=== PATIENT | male | born 1960 ===

== ENCOUNTER 2017-02-21 08:32 | Emergency (ER) | payer OTHER ==
[~2017-02-21] VITALS: Ht 182.9 cm; Wt 90.0 kg
[2017-02-21] VITALS (13 sets, daily range): BP systolic 65–162; BP diastolic 36–76; PULSE 81–104; RESP 24–28; O2SAT 93–100
--- NOTE | 2017-02-21 08:35 | ED.REPORT ---
HPI-Altered Mental Status Date of Service Feb 21, 2017 ED Provider: Ivory Briggs MD The pt is a 49 y/o male presenting to the ED via EMS due to a suicide attempt. He was found by a neighbor w/ an exhaust pipe going into his bedroom. The neighbor reports the pt is going through a divorce, and thinks there was a possible suicide attempt in the past. EMS found the pt w/ thick, white, dried froth around his mouth. They report the pt having good lung sounds, w/ an initial SaO2 of 86% and CO of 40, and have been giving him 15 L of O2 since they reached him. They also report that his CO level has been dropping and his SaO2 levels being in the high 90s. Versed and rocuronium was given in the field as well. Nursing Notes Stated Complaint: SUICIDE Chief Complaint: Suicide attempt Nursing Notes Reviewed: Yes General Time Seen by MD: 08:35 Chief Complaint Other (Suicide attempt) Hx Obtained From: EMS Arrived By: Ambulance Sudden in Onset?: Yes Onset Occurred: Just prior to arrival Symptom Duration: Since onset Recent Healthcare: No recent doctor visit, No recent hospitalization Similar Sx Previous: Yes Past Medical History Past Medical History Suicide attempt in past Diabetes Past Surgical History None reported Review of Systems Unable to Obtain ROS Patient condition, Intubated Physical Exam Initial Vital Signs Vital Signs (First) Date Time Temp Pulse Resp B/P Pulse Ox O2 Delivery O2 Flow Rate FiO2 02/21/17 08:42 36.0 101 24 99/60 95 Mechanical Ventilator Initial VS: Reviewed, Vital signs abnormal ENT: Mucous membranes moist, Conjunctiva normal, No scleral icterus Abdomen / GI: Soft, Non-tender Extremities: Vascular intact, Neuro intact, No swelling, No tenderness Skin: Warm, Dry, No cyanosis General/Constitutional: Well nourished Alertness: Positive: Unresponsive GCS of 3 Intubated Head / Eyes: Normocephalic, PERRL Neck: Supple, No swelling Cardiovascular: Heart rate NL, Regular rhythm, Heart sounds NL Mental Status: Positive: Unresponsive Interpretation & Diagnostics Lab Results Interpretation Result Diagram: 02/21/17 0845 02/21/17 0845 Test 02/21/17 08:45 02/21/17 09:15 White Blood Count 17.4th/mm3 (3.8-10.1) Red Blood Count 5.28mil/mm3 (4.40-5.80) Hemoglobin 17.0g/dL (13.8-17.2) Hematocrit 49.3% (41.0-50.0) Mean Corpuscular Volume 93.4fL (81-100) Mean Corpuscular Hemoglobin 32.2pg (27.0-35.0) Mean Corpuscular Hemoglobin Concent 34.5% (32.0-37.0) Red Cell Distribution Width 12.5% (12.3-15.4) Platelet Count 185bil/L (150-400) Neutrophils (%) (Auto) 80.9% (40-74) Lymphocytes (%) (Auto) 8.3% (14-46) Monocytes (%) (Auto) 9.3% (4-12) Eosinophils (%) (Auto) 0% (0-5) Basophils (%) (Auto) 0.2% (0-3) Prothrombin Time 10.1sec (8.1-12.5) Prothromb Time International Ratio 0.95ratio Sodium Level 139mEq/L (134-144) Potassium Level 5.3mEq/L (3.5-5.2) Chloride Level 98mEq/L (97-108) Carbon Dioxide Level 13mmol/L (18-29) Blood Urea Nitrogen 26mg/dL (6-24) Creatinine 1.75mg/dL (0.76-1.27) Estimat Glomerular Filtration Rate 43mL/min (>59) Glucose Level 343mg/dL (60-99) Lactic Acid Level 10.7mmol/L (0.4-2.0) Calcium Level 8.7mg/dL (8.5-10.1) Magnesium Level 2.0mg/dL (1.6-2.6) Total Bilirubin 0.4mg/dL (0.0-1.2) Aspartate Amino Transf (AST/SGOT) 51U/L (0-50) Alanine Aminotransferase (ALT/SGPT) 41U/L (0-44) Alkaline Phosphatase 97U/L (25-150) Troponin T 0.050ug/L (0.0-0.011) Total Protein 7.1g/dL (6.4-8.4) Albumin 4.4g/dL (3.4-5.0) Salicylates Level 3.0ug/mL (30-250) Acetaminophen Level 15.0ug/mL Rx (10-25) Alcohols < 10mg/dL (0-10) Urine Color Straw (YELLOW) Urine Appearance Clear (CLEAR,HAZY) Urine pH 5.5 (5.0-8.0) Urine Specific Hull 1.025 (1.003-1.035) Urine Protein Negativemg/dL (NEG,TRACE) Urine Glucose (UA) >1000mg/dL (NEGATIVE) Urine Ketones 15mg/dL (NEGATIVE) Urine Occult Blood Trace (NEGATIVE) Urine Nitrite Negative (NEGATIVE) Urine Bilirubin Negative (NEGATIVE) Urine Urobilinogen Normalmg/dL (NORMAL) Urine Leukocyte Esterase Negative (NEGATIVE) Urine RBC 0-2/hpf (0-2) Urine WBC 0-5/hpf (0-5) Urine Epithelial Cells None/hpf (NONE-MOD) Urine Crystals None seen (NONE SEEN) Urine Bacteria None/hpf (NONE-FEW) Urine Hyaline Casts Occasional/lpf (NONE) Urine Granular Casts None seen (NONE SEEN) Urine Waxy Casts None seen (NONE SEEN) Urine Red Blood Cell Casts None seen (NONE SEEN) Urine White Blood Cell Casts None seen (NONE SEEN) Urine Mucus None seen (None Seen) Urine Trichomonas None seen (NONE SEEN) Urine Yeast None (NONE SEEN) Urinalysis Comment None Urine Culture Reflexed Not indicated ECG Interpretation ECG Interpretation: Rate 93 Increase QTC NSR Early R-wave transition Time: 08:52 Interpreted by: ED physician X-Ray Chest Interpretation Chest Xray Interpretation: IMPRESSION: No mass found, reduced inspiration, endotracheal tube position normal. Bibasilar mild atelectasis and/or pneumonia. Dictated by: Fabrice Bedolla M.D. on 02/21/2017 at 9:57 Approved by: Fabrice Bedolla M.D. on 02/21/2017 at 9:58 View: Portable, 1 view Interpretation / Wet Read by: Interpret - Radiologist Chest Xray Interpretation: IMPRESSION: Lines and tubes appear in normal position, reduced inspiratory volume as was previously the case, possible mild or early pneumonia versus aspiration medial left lower lobe. Dictated by: Fabrice Bedolla M.D. on 02/21/2017 at 10:26 Approved by: Fabrice Bedolla M.D. on 02/21/2017 at 10:33 View: Portable, 1 view Interpretation / Wet Read by: Interpret - Radiologist CT Head Interpretation IMPRESSION: Normal for age, source of altered mental status is not seen. Dictated by: Fabrice Bedolla M.D. on 02/21/2017 at 11:12 Approved by: Fabrice Bedolla M.D. on 02/21/2017 at 11:12 Study: Head CT no contrast Interpretation / Wet Read by: Interpret - Radiologist Procedures Central Line Placement Central Line Placement Note: Showing end-organ damage Time: 09:35 Procedure Performed by: ED physician Consent / Setup / Site Prep: No consent - emergent, Oxygen administered, Pulse oximeter applied, monitoring coordinator applied, Hand hygiene observed, Standard surgical scrub, Sterile drapes applied, Position Trendelenburg Skin Preparation Agent: Hibiclens - Chlorhexidine Side / Location / Ultrasound: Internal jugular right, Ultrasound assisted Post-Procedure / Complications: Condition improved, Tolerated procedure well , Patient stable Re-Eval/Medical Decision Med Decision/Clinical Course This patient presented with an obvious suicide attempt by carbon monoxide poisoning. He was unresponsive upon arrival clenching his jaw and was intubated. Upon arrival here his evaluation revealed an acidosis and, monoxide level of 30. While here the patient became hypotensive and required dopamine which was eventually stopped due to her blood pressure however prior to transport the patient became hypotensive again and dopamine was restarted. The patient does not have any other signs of a co ingestion. The patient's family arrived upon his transport and stated that he does have multiple medications he supposed to be on and that he is diabetic. They are going to go down to [facility] later this afternoon. The patient did spontaneously open his eyes have minimal movement that was not able to follow commands. Re-Evaluation/Progress #1: Time of Eval: 09:35 Re-Evaluation/Progress Note: Performed central line procedure. Re-Evaluation/Progress #2: Time of Eval: 10:13 Re-Evaluation/Progress Note: Pt rechecked and is beginning to wake up w/ spontaneous eye opening and swallowing. Re-Evaluation/Progress #3: Time of Eval: 11:13 Re-Evaluation/Progress Note: Spoke w/ patient's family and discussed the plan for the pt. They report the pt being a diabetic. Consultation #1: [facility] Returned at: 09:54 Consultation #2: Referral / Consult Name: Stephanie Newell MD Call Returned at: 10:10 Title I Teacher: Will see patient Note: Discussed pt's case w/ Dr. 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 I, Dr. Briggs personally performed the history, physical exam and medical decision-making; I reviewed and confirmed the accuracy of the information in the transcribed note. copies to: [facility] Ivory Briggs MD Feb 21, 2017 08:35 Curry Martin Feb 21, 2017 09:32
--- NOTE | 2017-02-21 08:55 | ABG ---
DateTimeAnalyzed 08:46:41 -_ pH ____7.165 - pCO2 ___42.0__ -mmHg pO2 226 -mmHg HCO3- ___15.1__ -mmol/L ABE __-12.8__ -mmol/L tHb ___15.5__ -g/dL O2Hb ___69.2__ -% COHb ___30.7__ -% MetHb ____0.4__ -% FIO2 __100.0__ -% Set_RR 24 -b/min Drawn By as - Date/Time Notified____ 08:55:00 -_ Spontaneous_RR 24 -b/min A/C __500.0__ - Oxygen Device 1 VENTILATOR - Notified By ams - Notified Whom _dr chilo - K+ ____4.7__ -mmol/L Kushal test _Positive -
[2017-02-21 09:09] LABS: INR 0.95 ratio
[2017-02-21 09:26] LABS: Mean Corpuscular Volume 93.4 fL (81-100)
[2017-02-21 09:27] LABS: BASOPHILS % (AUTO) 0.2 % (0-3); EOSINOPHILS % (AUTO) 0 % (0-5); MONOCYTES % (AUTO) 9.3 % (4-12); Mean Corpuscular Hemoglobin 32.2 pg (27.0-35.0); NEUTROPHILS % (AUTO) 80.9 % (40-74); Platelet Count 185 bil/L (150-400)
[2017-02-21] MEDS ORDERED: 0.9% Sodium Chloride 1,000 ML IV ONE (09:30)
[2017-02-21] MEDS ORDERED: DOPamine 800 mg/250 mL D5W 800,000 MCG in IV Premix 1 EACH IV STA (09:33)
--- NOTE | 2017-02-21 09:48 | ABG ---
DateTimeAnalyzed 09:42:00 -_ pH ____7.227 - 7.350 7.450 pCO2 ___35.5__ -mmHg 35.0 45.0 pO2 360 -mmHg 69.0 116 HCO3- ___14.2__ -mmol/L 22.0 26.0 ABE __-12.3__ -mmol/L -2.0 2.0 tHb ___14.4__ -g/dL O2Hb ___81.2__ -% COHb ___16.8__ -% MetHb ____1.3__ -% sO2 ___99.1__ -% 25.0 FIO2 __100.0__ -% PEEP ____5.0__ -cmH2O Set_RR ___24.0__ -b/min Vt __500.0__ -L Drawn By as - Date/Time Notified____ 09:48:00 -_ Spontaneous_RR ___28.0__ -b/min Oxygen Device 1 VENTILATOR - Notified By ams - Notified Whom _dr Chester - B 756 -mmHg tO2 ___17.3__ -Vol% Kushal test _Positive -
--- NOTE | 2017-02-21 10:00 | DRSVH ---
PROCEDURE: X-RAY CHEST ONE VIEW, PORTABLE ([id number]) INDICATIONS: intubation TECHNIQUE: One view of the chest was acquired. COMPARISON: None. FINDINGS: Surgical changes and devices: Endotracheal tube in normal position. Lungs and pleura: No pleural effusions or pneumothorax. Lungs are abnormal, with mild bibasilar ate lectasis and/or pneumonia in the setting of relatively prominently reduced inspiratory volume. Mediastinum: Mediastinal contours appear normal. Heart size is normal. Bones and chest wall: No suspicious bony lesions. Overlying soft tissues appear unremarkable. IMPRESSION: No mass found, reduced inspiration, endotracheal tube position normal. Bibasilar mild at electasis and/or pneumonia. Dictated by: Fabrice Bedolla M.D. on 02/21/2017 at 9:57 Approved by: Fabrice Bedolla M.D. on 02/21/2017 at 9:58
[2017-02-21] MEDS ORDERED: fentaNYL-PF 50 mCg/mL 2 mL Inj ONE (10:13)
[2017-02-21] MEDS ORDERED: fentaNYL-PF 50 mCg/mL 2 mL Inj IVPUSH ONE (10:15)
--- NOTE | 2017-02-21 10:35 | DRSVH ---
PROCEDURE: X-RAY CHEST ONE VIEW, PORTABLE ([id number]) INDICATIONS: POST CENTERAL LINE PLACEMENT TECHNIQUE: One view of the chest was acquired. COMPARISON: [facility], CR, XR CHEST 1VW (PORTABLE), 02/21/2017, 8:31. FINDINGS: Surgical changes and devices: Central line placed from right internal jugular approach, and with the tip extending into the expected region of the [id number] thirds of the superior vena cava. End otracheal tube now in normal position with tip 4.4 cm above the mohit. Nasogastric tube extends nor aj below the imaging margin Lungs and pleura: No pleural effusions or pneumothorax. Lungs are mildly atelectatic with reduced i nspiratory volume. Possible slight pneumonia or aspiration medial left lung base. Mediastinum: Mediastinal contours appear normal. Heart size is normal. Bones and chest wall: No suspicious bony lesions. Overlying soft tissues appear unremarkable. IMPRESSION: Lines and tubes appear in normal position, reduced inspiratory volume as was previously t he case, possible mild or early pneumonia versus aspiration medial left lower lobe. Dictated by: Fabrice Bedolla M.D. on 02/21/2017 at 10:26 Approved by: Fabrice Bedolla M.D. on 02/21/2017 at 10:33
[2017-02-21 10:52] LABS: APPEARANCE,URINE CLEAR (CLEAR,HAZY); COLOR,URINE STRAW (YELLOW); PH,URINE 5.5 (5.0-8.0)
[2017-02-21 10:53] LABS: OCCULT BLOOD,URINE TRACE (NEGATIVE); UROBILINOGEN,URINE NORMAL (NORMAL)
--- NOTE | 2017-02-21 11:15 | DRSVH ---
PROCEDURE: CT BRAIN WITHOUT CONTRAST ([id number]) INDICATIONS: ams TECHNIQUE: Noncontrast 4.5 mm thick angled axial sections acquired from the foramen magnum to the vertex, with c oronal reformats. COMPARISON: None. FINDINGS: Image quality: Excellent. CSF spaces: Basal cisterns are patent. No extra-axial fluid collections. Ventricles are normal in size and shape. Brain: No midline shift. No intracranial masses or hemorrhage. Ruelas-white matter interface is norm al. Skull and face: Calvarium and visualized facial bones are intact, without suspicious lesions. Sinuses: Visualized sinuses and mastoids are clear. IMPRESSION: Normal for age, source of altered mental status is not seen. Dictated by: Fabrice Bedolla M.D. on 02/21/2017 at 11:12 Approved by: Fabrice Bedolla M.D. on 02/21/2017 at 11:12
--- NOTE | 2017-02-23 01:27 | ABG ---
DateTimeAnalyzed 08:46:41 -_ pH ____7.165 - pCO2 ___42.0__ -mmHg pO2 226 -mmHg HCO3- ___15.1__ -mmol/L ABE __-12.8__ -mmol/L tHb ___15.5__ -g/dL O2Hb ___69.2__ -% COHb ___30.7__ -% MetHb ____0.4__ -% FIO2 __100.0__ -% Drawn By as - Date/Time Notified____ 08:55:00 -_ Notified By ams - Notified Whom _dr chilo - K+ ____4.7__ -mmol/L Kushal test _Positive -
--- NOTE | 2017-02-23 01:29 | ABG ---
DateTimeAnalyzed 08:46:41 -_ pH ____7.165 - 7.350 7.450 pCO2 ___42.0__ -mmHg 35.0 45.0 pO2 226 -mmHg 70.0 100 HCO3- ___15.1__ -mmol/L 22.0 26.0 ABE __-12.8__ -mmol/L -2.0 2.0 tHb ___15.5__ -g/dL 12.0 18.0 O2Hb ___69.2__ -% 95.0 COHb ___30.7__ -% 1.5 MetHb ____0.4__ -% 0.4 1.5 FIO2 __100.0__ -% Drawn By as - Date/Time Notified____ 08:55:00 -_ Notified By ams - Notified Whom _dr chilo - K+ ____4.7__ -mmol/L Kushal test _Positive -
== END 2017-02-21 10:55 | disposition short-term general hospital (02) ==
LOC: EDBD 08:32 → SED 08:32
DX: T58.02XA Toxic effect of carbon monoxide from motor vehicle exhaust, intentional self-harm, initial encounter (principal); X83.8XXA Intentional self-harm by other specified means, initial encounter; Y93.89 Activity, other specified; Y99.8 Other external cause status; Y92.838 Other recreation area as the place of occurrence of the external cause; E11.9 Type 2 diabetes mellitus without complications
CPT/HCPCS: 36415; 36556; 36620; 43752; 51702; 70450; 71010; 80053; 81000; 82373; 82375; 82803; 82948; 83605; 83735; 84484; 85025; 85610; 93005; 94002; 94799; 96361; 96365; 96375; 99291; 99292; G0480; J1265; J3010; J7030

== ENCOUNTER 2017-02-25 10:57 | Inpatient (IN) | payer MEDICAID, OTHER ==
[~2017-02-25] VITALS: Ht 185.4 cm; Wt 108.0 kg
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
[2017-02-25] MEDS ORDERED: Alum-Mag Hydrox-Simeth 30 mL Suspension PO PRN ×2 (14:35)
[2017-02-25] MEDS ORDERED: Benzocaine-Menthol Lozenge 2/Pkg PO PRN ×2 (14:35)
[2017-02-25] MEDS ORDERED: Magnesium Hydroxide 10 mL Oral Concentration PO PRN ×2 (14:35)
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
--- NOTE | 2017-02-25 18:38 | NUR ---
Seat Trimmer/Counselor: S: "My environmental lawyer says I may have a case and can finally get disability." O: Patient denies S/I and H/I. He also denies auditory and visual hallucinations. Depression is 1-2/10 and anxiety is 2/10. Patient stated that he has plans of moving to [place], [place] at the end of this month instead of living in [place], [place]. He also stated that "after this incident, all of my friends and family rallied around me and showed me how much they love me." A: Patient is cooperative, depressed, anxious, fair insight, fair judgment. P: Follow the care plan, coordinate with out-patient providers.
[2017-02-25] MEDS: Pantoprazole 20 mg ER24 Tablet PO SCH (22:12)
[2017-02-25] MEDS: BusPIRone 15 mg Dividose Tablet PO SCH (22:12)
[2017-02-25] MEDS: Insulin GLARgine 100 Unit/mL Syringe SUBQ SCH (22:13)
[2017-02-25 22:22] VITALS: BP 125/85; PULSE 81; RESP 16
--- NOTE | 2017-02-25 23:00 | NUR ---
Nurses Note evening Patient has been social with peers and enjoyed visiting with his and 2 daughters this shift. Patients' affect has been bright,his mood cheerful denying feelings of self harm. Patients' family to leave his truck in the [employer] parking lot for discharge convenience. Will maintain q 15min,checks for safety and support. Addendum: 02/25/17 at 7206 by MANDY ART RN Amended: Links added.
[2017-02-26] MEDS: hydrOXYzine Pamoate 25 mg Capsule PO PRN ×2 (04:07→21:09)
--- NOTE | 2017-02-26 04:35 | NUR ---
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 i'm just using my sheets and i'm still sweating. my head feels full can i have some benadryl. ok i'll try that. thank you. o- has appeared to sleep after midnight. awake briefly at 0300 for blood sugar check bs= 122. up at 0400 with complaint of how warm and stuffy his room is and that his head felt congested. received 50 mg of vistaril. is currently resting quietly in bed. assessed q 15 minutes. a- interupted sleep, no apparent distress. p- monitor behavior/emotional state, quality, times and amount of sleep, use and effect of medication. peg
[2017-02-26] MEDS: Pantoprazole 20 mg ER24 Tablet PO SCH ×2 (08:27→21:09)
[2017-02-26] MEDS: metFORMIN ER 500 mg ER24 Tablet PO SCH (08:28)
[2017-02-26] MEDS: BusPIRone 15 mg Dividose Tablet PO SCH ×2 (08:28→21:09)
[2017-02-26 11:30] VITALS: BP 108/75; PULSE 81; RESP 15
--- NOTE | 2017-02-26 12:54 | NUR ---
Nursing Dayshift Pt has had a pleasant day. He was up and out for breakfast and lunch. He was out in the main area visiting with a female peer. He presents with a bright affect smiling and laughing, watching a television show with his peers. He is sitting in a chair with his legs stretched out on an ottoman looking quite relaxed. He is in no apparent distress with no noted or expressed SI. He happily agreed to a visit with the hospital draw frame operator at 3pm. His only complaint is SANDOVAL pain that he describes as being "low grade". He did c/o diarrhea after eating lunch. Doctor notified and Imodium will be ordered per pt request. Pt's had called this afternoon after having a phone conversation with Shay. She called to speak with staff. She was very distraught on the phone and upset because Shay told her he would be discharging this Thursday. She expressed her concern about her 's safety. This staff nurse tried to provide the option for her to leave a message with case management but she hung up the phone before that could be done.
--- NOTE | 2017-02-26 14:49 | PROG NOTE ---
[address] [address] PROGRESS NOTE PATIENT: DOTTIE DICKENS : 1960 MR#: [id number] ADMIT: 02/25/2017 JOB ID: [id number] DATE: 02/26/2017 CHIEF COMPLAINT: "I had a really good visit with my soon-to-be ex- and daughter." This per patient report. HISTORY OF PRESENT ILLNESS: As stated above, the patient identified that he did have a positive visit with his soon-to-be ex- and daughter last evening. He indicated that he remains hopeful that there might be a possible reunification. He indicated that they have delivered his pickup so that when he is discharged he can continue back home to his current rental plot in [place] with his mobile home. He reports that essentially he has had no further suicidal ideation. He is bright and optimistic. He indicated that he is aware that we had discontinued his doses of Suboxone in conversations but this has not been formally completed at this time. He reports that he does not experience any significant side effects from the BuSpar, but is hopeful that essentially will address his ongoing difficulties. OBJECTIVE: On mental status examination, the patient was cooperative. He had to be redirected in reference to some inappropriate discussion and appears to be attention seeking at times. His speech is of normal tone, frequency and volume. His mood is neutral. Affect is incongruent to some point. He denies any evidence of suicidal or homicidal ideation. He admitted to significant regret and remorse in reference to the previous attempt. He was alert, oriented to time and place. Attention and concentration intact. Memory intact in the short term, penitentiary, recent. Insight and judgment are fair. PHYSICAL EXAM: Vital signs are current. Temperature is 36.3, pulse 81, respirations 16, BP 125/85. MEDICATION REVIEW: Includes: 1. Metformin 2250 mg q. a.m. 2. Synthroid 88 mcg daily. 3. Lantus 10 units q.h.s. 4. BuSpar 15 mg b.i.d. 5. Glipizide 5 mg b.i.d. 6. P.r.n. usage of Vistaril 50 mg q.4 hours. ASSESSMENT: AXIS I 1. Major depressive disorder, recurrent type, nonpsychotic. 2. Generalized anxiety disorder. 3. Panic disorder without agoraphobia. AXIS II Personality disorder, not otherwise specified, including features of histrionic and dependent personality. AXIS III Recent carbon monoxide poisoning. AXIS IV Stressors were noted for disturbance of coping, primary support system, transition to life. AXIS V Global assessment of functioning of current 35. PLANS: 1. Continuation of all medications noted. 2. Recommendations for outpatient connections with individual therapy, medication management, to be collaborated with the counseling case manager, RASAHD. The patient notes that he will be moving to [place] to be closer to his daughter at the end of this month. Appointments will be scheduled somewhere in [place] more than likely. 3. Probable discharge tomorrow for continuation aftercare.
--- NOTE | 2017-02-26 17:40 | NUR ---
I O Psychologist/Counselor: S: "I didn't sleep last night. It was so hot in this room, I had to strip down to my underwear." O: Patient slept 5 hours last night per staff. He denies S/I and H/I. He also denies auditory and visual hallucinations. Depression is 1/10 and anxiety is 2/10. Patient is scheduled to discharge tomorrow. A: Patient is cooperative, depressed, anxious, fair insight, fair judgment. P: Follow the care plan, coordinate with out-patient providers.
--- NOTE | 2017-02-26 18:18 | NUR ---
Observations [id number] Pt reported poor sleep last night due to temperature in room. This insurance writer requested that engineering turn down the temperature to his room. Pt attended all meals, eating an average of 85%. He slept much of the morning due to lack of sleep at night. Pt active on unit, friendly. He spoke with and had a visit from his camper assembler in the afternoon. Pt good with ADL's. He watched a movie in the evening. Pt reported not feeling well, having stomach issues and a headache. He was observed every 15 minutes of shift as directed.
[2017-02-26] MEDS: Insulin GLARgine 100 Unit/mL Syringe SUBQ SCH (21:20)
--- NOTE | 2017-02-27 02:50 | NUR ---
Observations 1900 to 0700 Pt attended and participated in wrap up group. Pt ate a snack. Pt spends free time watching TV and mildly social with peers. Pt maintained behavioral control and showed no signs of abnormal behavior. Pt appeared asleep at 2330 and has remained asleep. Pt respirations were observed when asleep. Staff completed 15 min close observations as ordered.
--- NOTE | 2017-02-27 05:29 | NUR ---
nursing, nights, 11-7 s- something woke me up. o- initial difficulty getting to sleep. has appeared to sleep after 2330 during q 15 minute assessments. a- no apparent distress. p- monitor behavior/emotional state, quality, times and amount of sleep, use and effect of medication. peg
[2017-02-27] MEDS: Pantoprazole 20 mg ER24 Tablet PO SCH (08:23)
[2017-02-27] MEDS: metFORMIN ER 500 mg ER24 Tablet PO SCH (08:23)
[2017-02-27] MEDS: BusPIRone 15 mg Dividose Tablet PO SCH (08:24)
[2017-02-27 10:05] VITALS: BP 113/75; PULSE 76; RESP 16
--- NOTE | 2017-02-27 10:44 | PCM.DIMED ---
Discharge Instructions Date of Service Feb 27, 2017 Dates of Hospitalization Feb 25, 2017 at 12:00 Discharge Diagnosis Discharge Diagnosis Major Depression Recurrent nonpsychotic Generalized Anxiety DO Panic DO without agoraphobia Dependent and Histrionic Personality Diet Discharge Diet: No restrictions Activity Discharge Activity: No restrictions Calvin Garnica DO Feb 27, 2017 10:44
[2017-02-27] MEDS ORDERED: BUSP15TA3 PO (10:45)
--- NOTE | 2017-02-27 13:33 | NUR ---
Nursing Note Discharge Patient cooperative with discharge process. Acknowledges understanding of d/c instructions and has a copy with them upon leaving unit at 1330. Belongings accounted for and with patient. Prescriptions given to patient to fill at his choice of pharmacy. Patient denies harmful thoughts and hallucinations at this time.
--- NOTE | 2017-02-27 14:47 | DIS ---
[address] [address] DISCHARGE SUMMARY PATIENT: DOTTIE DICKENS : 1960 MR#: [id number] ADMIT: 02/25/2017 JOB ID: [id number] DIS: ADMITTING DIAGNOSES: Include: [place] I. 1. Major depressive disorder, recurrent, severe, nonpsychotic. 2. Generalized anxiety disorder. 3. Panic disorder without agoraphobia. [place] II. Personality disorder not otherwise specified. [place] III. Recent carbon monoxide poisoning. [place] IV. Stressors are noted for coping disturbance, disturbance of primary support system, transition of life. [place] V. Global Assessment of Functioning current 35. DISCHARGE DIAGNOSES: Include: [place] I. 1. Major depressive disorder, recurrent, severe, nonpsychotic. 2. Generalized anxiety disorder. 3. Panic disorder without agoraphobia. [place] II. Personality disorder not otherwise specified. [place] III. Recent carbon monoxide poisoning. [place] IV. Stressors are noted for coping disturbance, disturbance of primary support system, transition of life. [place] V. Global Assessment of Functioning current 40. REASON FOR ADMISSION: Patient was a 57-year-old male admitted post transfer from [facility] after significant carbon monoxide poisoning. During hospital course, patient's history was reviewed with previous noted identification of depression, previous trials of Celexa with no significant improvement. Throughout hospital course, patient did identify significant factors of panic and generalized anxiety disorder and was agreeable to initiate doses of BuSpar. He was initiated on 15 mg b.i.d., and participated in both individual and group therapy components. There was noted significant interpersonal relationship difficulties, which appeared to be resolving with his of current. There was initial filing of divorce in December. However, the patient was optimistic that she was going to retract such. Throughout hospital course, patient denied any evidence of further suicidal thoughts and agreed to continue with outpatient interventions of therapy. CONDITION AT TIME OF DISCHARGE: Patient's mental status exam: He was bright, cooperative, interactive. He denied any evidence of acute distress. His speech was of normal tone, frequency, and volume. His mood was neutral. His affect was congruent. His thought process showed no evidence of racing thoughts, flight of ideas, loose or disconnected thinking. Thought content: He denied any evidence of current suicidal, homicidal ideation. No evidence of active hallucinations, delusions. Mental grasp: He was alert, oriented to time and place. Attention and concentration intact. Insight and judgment were fair. DISCHARGE PLANS: 1. Followup to be coordinated with Quyen Wei, the conference planner with [facility] for both individual therapy, medication management 2. Continuation of medications including BuSpar 15 mg b.i.d. 3. Continuation of all other medications of prior including doses of Humalog, Lispro and Lantus for noted history of insulin dependence. 4. Continuation of BuSpar 15 mg b.i.d., one month supply, no refills. Reason for usage: Anti- anxiety agent.
--- NOTE | 2017-02-27 19:22 | NUR ---
Travel Pta/Counselor: S: "I am happy about being able to have out-patient care." O: Patient slept 6 hours last night per staff. He denies S/I and H/I. He also denies auditory and visual hallucinations. Depression is 1/10 and anxiety is 3/10. Out-patient appointment: [facility], appointment will be scheduled by [facility] employee's representative who will call the patient upon discharge to schedule out-patient appointment. A: Patient is cooperative, future oriented, good insight, good judgment. P: Follow the care plan, coordinate with out-patient providers.
== END 2017-02-27 13:30 | disposition home or self-care (01) | DRG 885 ==
LOC: MHC 12:00 → UNDOADMIN 12:00
PROVIDERS: ADMIT Psychiatry & Neurology Psychiatry; ATTEND Psychiatry & Neurology Psychiatry
DX: F33.2 Major depressive disorder, recurrent severe without psychotic features (principal); F41.0 Panic disorder [episodic paroxysmal anxiety]; Z91.5 Personal history of self-harm; F41.1 Generalized anxiety disorder; F60.9 Personality disorder, unspecified